=== PATIENT | female | born 1965 | race Caucasian/White ===

== ENCOUNTER 2018-06-25 12:48 | Outpatient (CLI) | payer MEDICARE, OTHER ==
[~2018-06-25 12:48] MED LIST: GABA-532 PO; MYCO250C46 PO; VENL150C2 PO
== END 2018-06-25 23:59 | disposition home or self-care (01) ==
LOC: CARD DIAG 12:48
PROVIDERS: ATTEND Family Medicine
DX: I35.8 Other nonrheumatic aortic valve disorders (principal); J84.9 Interstitial pulmonary disease, unspecified; J45.909 Unspecified asthma, uncomplicated
CPT/HCPCS: 93306